=== PATIENT | female | born 1950 | race Caucasian/White ===

== ENCOUNTER 2017-10-04 09:26 | Emergency (ER) | END 2017-10-04 11:21 | disposition home or self-care (01) ==

== ENCOUNTER 2018-05-11 11:28 | Emergency (ER) | payer MEDICARE, OTHER ==
[~2018-05-11] VITALS: Wt 58.0 kg
[~2018-05-11 11:28] MED LIST: CEPH-443 PO
[2018-05-11 11:31] VITALS: BP 154/71; PULSE 78; RESP 18
[2018-05-11] MEDS ORDERED: KETOROLAC 60 MG INJ IM STA (12:06)
[2018-05-11] MEDS ORDERED: DICL100G37 TOP (12:13)
[2018-05-11] MEDS ORDERED: TRAM50TA2 PO (12:13)
[2018-05-11] MEDS ORDERED: MED4DP PO (12:13)
--- NOTE | 2018-05-11 13:05 | ERD ---
ER Documentation Chief Complaint Chief Complaint BILATERAL EAR PAIN X 1 MONTH HPI 67-year-old female presenting with pain to her right upper extremity times 1 month. Patient states that she has burning and numbness down her right arm and it hurts worse with movement. She denies any falls or injuries. Patient is r ight-hand dominant. Patient is diabetic with [id number]. NKDA. Surgical history denies. Social history denies. Denies chest pain or shortness of breath. States that she also has neck pain. ROS All systems reviewed and are negative except as per history of present illness. Medications Home Meds Active Scripts Diclofenac Sodium* (Voltaren* Gel) 1% -100 Gm Gel, 2 GM TOP QID, #1 TUB Prov:NESTOR ROCA PA-C 05/11/18 Tramadol HCl (Tramadol HCl) 50 Mg Tablet, 50 MG PO Q4 PRN for PAIN, #20 TAB Prov:NESTOR ROCA PA-C 05/11/18 Methylprednisolone* (Medrol* DOSE PACK) 4 Mg/Dose-Pack Tab.ds.pk, 4 MG PO . DIRECTED, #1 PACKET Prov:NESTOR ROCA PA-C 05/11/18 Cephalexin* (Keflex*) 500 Mg Capsule, 500 MG PO QID for 10 Days, CAP Prov:SHANTE GARCIA MD 10/04/17 Allergies Allergies: Coded Allergies: No Known Allergy (Unverified , 05/11/18) PMhx/Soc History of Surgery: No Anesthesia Reaction: No Hx Neurological Disorder: No Hx Respiratory Disorders: No Hx Cardiac Disorders: Yes (htn, high cholesterol) Hx Psychiatric Problems: No Hx Miscellaneous Medical Probl: Yes (dm) Hx Alcohol Use: No Hx Substance Use: No Hx Tobacco Use: No Smoking Status: Never smoker FmHx Family History: No diabetes, No coronary disease, No other Physical Exam Vitals Vital Signs Date Temp Pulse Resp B/P (MAP) Pulse Ox O2 O2 Flow FiO2 Time Delivery Rate 05/11/18 98.9 78 18 154/71 99 11:31 (98) Physical Exam GENERAL: The patient is well-appearing, well-nourished, in no acute distress HEENT: Atraumatic. Conjunctivae are pink. Pupils equal, round, and reactive to light. There is no scleral icterus. Tympanic membranes clear bilaterally. Oropharynx clear. No nystagmus or photophobia. NECK: C-spine is soft and supple. There is no meningismus. There is no cer vical lymphadenopathy. CHEST: Clear to auscultation bilaterally. There are no rales, wheezes or rhonchi. HEART: Regular rate and rhythm. No murmurs, clicks, rubs or gallops. No S3 or S4. EXTREMITIES: Equal pulses bilaterally. There is no peripheral clubbing, cyanosis or edema. No focal swelling or erythema. Full range of motion. Grossly neurovascularly intact. Tender to palpation with movement of the right upper extremity. No obvious deformities. NEUROLOGIC: Alert and oriented. Motor strength in all 4 extremities with 5 out of 5 strength. Sensation grossly intact. Results 24 hrs Current Medications Medications Dose Sig/Angelic Start Time Status Last (Trade) Ordered Route PRN Stop Time Admin Dose Reason Admin Ketorolac 60 mg ONCE STAT 05/11/18 DC 05/11/18 Tromethamine IM 12:06 12:13 (Toradol) 05/11/18 12:07 Procedures/MDM ER course: Toradol given ED. MDM: 67-year-old female presenting with pain to her right upper extremity. Patient's pain extends from her neck down to her arms and she states she has occasional. I believe patient likely cervical radiculopathy. I have low suspicion for carotid dissection, cardiac or pulmonary emergency. I have low suspicion for infectious etiology. I did not not feel that blood work or imaging is indicated. Patient is discharged strict ER precautions and told to follow-up with primary care within 1-2 days for close evaluation. Patient is told symptoms change or worsen to immediately return to the ER. All questions answered at discharge Departure Diagnosis: Primary Impression: Cervical radiculopathy Condition: Stable Patient Instructions: Radiculopathy, Cervical Additional Instructions: FOLLOW UP WITH YOUR PRIMARY CARE PHYSICIAN TOMORROW.Return to this facility if you are not improving as expected. NESTOR ROCA PA-C May 11, 2018 13:05
== END 2018-05-11 12:19 | disposition home or self-care (01) ==
LOC: FTE 11:28
DX: M54.12 Radiculopathy, cervical region (principal); I10 Essential (primary) hypertension; E11.9 Type 2 diabetes mellitus without complications
CPT/HCPCS: 96372; J1885

== ENCOUNTER 2018-08-31 10:52 | Emergency (ER) | payer MEDICARE, OTHER ==
[~2018-08-31] VITALS: Ht 162.6 cm; Wt 60.4 kg
[~2018-08-31 10:52] MED LIST changes: +DICL100G37 TOP; +MED4DP PO; +TRAM50TA2 PO
[2018-08-31 11:02] VITALS: BP 164/61; PULSE 78; RESP 18; Ht 162.6 cm; Wt 60.4 kg
[2018-08-31] MEDS ORDERED: ACETAMINOPHEN 500 MG TAB PO STA (11:56)
[2018-08-31] MEDS ORDERED: ACET500C5 PO (13:27)
[2018-08-31] MEDS ORDERED: BACI28.34 TOP (13:28)
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
== END 2018-08-31 13:54 | disposition home or self-care (01) ==
LOC: FTE 10:52
DX: S00.81XA Abrasion of other part of head, initial encounter (principal); S89.92XA Unspecified injury of left lower leg, initial encounter; S89.91XA Unspecified injury of right lower leg, initial encounter; E11.9 Type 2 diabetes mellitus without complications; I10 Essential (primary) hypertension; W01.0XXA Fall on same level from slipping, tripping and stumbling without subsequent striking against object, initial encounter; Y92.830 Public park as the place of occurrence of the external cause